=== PATIENT | female | born 1995 | race Caucasian/White ===

== ENCOUNTER 2017-12-20 10:48 | Emergency (ER) | payer OTHER ==
[~2017-12-20] VITALS: Ht 167.6 cm; Wt 65.8 kg
[~2017-12-20 10:48] MED LIST: CLARAVIS40 MG PO; CYCLOBENZAPRINE10 M1 PO; FIORICET 50-301 EACH PO; FLEXERIL10 MG PO; IBU800 MG PO; IBUPROFEN600 M1 PO; PAXIL40 M1 PO; SERTRALINE HYD100 MG PO; ZOFRAN ODT4 M1 SL; ZOFRAN ODT4 MG PO
[2017-12-20 12:01] LABS: ABSOLUTE BASOPHIL COUNT 0 /CUMM (0.0-0.2); ABSOLUTE EOSINOPHIL COUNT 0 /CUMM (0.0-0.7); ABSOLUTE GRANULOCYTE CT 5.9 /CUMM (1.4-6.5); ABSOLUTE LYMPH COUNT 0.6 /CUMM (1.2-3.4); ABSOLUTE MONOCYTE COUNT 0.7 /CUMM (0.10-0.60); BASOPHIL % 0.3 % (0.0-2.0); EOSINOPHIL % 0 % (0-5); GRANULOCYTE % 80.9 % (42.2-75.2); HEMATOCRIT 36.1 % (37-47); MEAN CORPUSCULAR HGB 31.4 PG (27.0-31.0); MEAN CORPUSCULAR HGB CONC 34.7 G/DL (33.0-37.0); MEAN CORPUSCULAR VOLUME 90.4 FL (81.0-99.0); PLATELET COUNT 185 /CUMM (130-400); RBC DISTRIBUTION WIDTH 12.8 % (11.5-14.5); RED BLOOD CELL CT 3.99 /CUMM (4.20-5.40); WHITE BLOOD CELL COUNT 7.3 /CUMM (4.8-10.8)
--- NOTE | 2017-12-20 14:06 | ED GENERAL ADULT ---
History of Present Illness General Chief Complaint: General Adult Stated Complaint: FEVER Source: patient Exam Limitations: no limitations Vital Signs & Intake/Output Vital Signs & Intake/Output Vital Signs Date Time Temp Pulse Resp B/P B/P Pulse O2 O2 Flow FiO2 Mean Ox Delivery Rate 12/20 1556 97.8 65 16 112/60 97 Room Air 12/20 1303 99.3 70 16 120/62 95 Room Air 12/20 1113 101.4 100 18 111/72 97 Room Air Allergies Coded Allergies: No Known Drug Allergies (Intermediate, NONE 05/23/17) lactose (GI UPSET 12/24/16) Reconcile Medications Ciprofloxacin HCl (Cipro) 500 MG TABLET 1 TAB PO BID UTI Ibuprofen 800 MG TABLET 1 TAB PO TID PAIN/FEVER Ibuprofen 600 MG TABLET 1 TAB PO TID PRN pain with food Paroxetine HCl (Paxil) 40 MG TABLET 1 TAB PO QPM MENTAL HEALTH (Reported) Triage Note: PT STATES SHE HAS A FEVER FOR THE PAST 24HOURS. PT STATES SHE WAS VOMITING AND FEELING DIZZY AND STATES SHE HAD A WATKINS. Triage Nurses Notes Reviewed? yes Onset: Abrupt Duration: day(s): (1-2), changing over time, continues in ED Timing: single episode today Injury Environment: home Severity: mild, moderate No Modifying Factors: none LMP (ages 10-50): unknown : No Patient currently breastfeeds: No HPI: 22-year-old female history of depression and anorexia presents for evaluation of nausea, vomiting, abdominal pain fever and dizziness. Patient states no started 1-2 days ago and it been persistent. She reports she had 3 episodes of watery diarrhea and an episode of vomiting that occurred last night. She also reports some intermittent lower abdominal pain mostly on the left side. She also reports urinary urgency and frequency. No dysuria vaginal discharge or bleeding. She has some left-sided lower back pain. No hematuria. She been taking Motrin at home with some improvement. No rashes chest pain shortness of breath or cough. She has been able tolerate some fluids and food today. She feels like her nausea and diarrhea have improved. No sick contacts recent travel or recent antibiotics. (Rell Means) Past History Travel History Traveled to [place] past 21 day No Medical History Any Pertinent Medical History? see below for history Neurological: NONE EENT: NONE Cardiovascular: NONE Respiratory: NONE Gastrointestinal: NONE Hepatic: NONE Renal: NONE Musculoskeletal: NONE Psychiatric: depression, anorexia nervosa Endocrine: NONE Blood Disorders: NONE Cancer(s): NONE Surgical History Surgical History: non-contributory Psychosocial History What is your primary language Irish Tobacco Use: Never used ETOH Use: denies use Illicit Drug Use: denies illicit drug use Family History Hx Contributory? No (Rell Means) Review of Systems Review of Systems Constitutional: Reports: fever, malaise. EENTM: Reports: no symptoms. Respiratory: Reports: no symptoms. Cardiovascular: Reports: no symptoms. GI: Reports: see HPI, abdominal pain, diarrhea, nausea, vomiting. Genitourinary: Reports: urgency. Musculoskeletal: Reports: muscle pain, muscle stiffness. Skin: Reports: no symptoms. Neurological/Psychological: Reports: no symptoms. Hematologic/Endocrine: Reports: no symptoms. Immunologic/Allergic: Reports: no symptoms. All Other Systems: Reviewed and Negative (Rell Means) Physical Exam Physical Exam General Appearance: well developed/nourished, no apparent distress, alert, awake Head: atraumatic, normal appearance Eyes: Bilateral: normal appearance, PERRL, EOMI. Ears, Nose, Throat: hearing grossly normal Neck: normal inspection, supple, full range of motion Respiratory: normal breath sounds, chest non-tender, no respiratory distress, lungs clear Cardiovascular: regular rate/rhythm, normal peripheral pulses Peripheral Pulses: 2+ radial (R), 2+ radial (L) Gastrointestinal: normal bowel sounds, soft, no organomegaly, tenderness (llq, left flank, lf periumbil) Back: normal inspection, normal range of motion, lumbar paraspinous muscles tender to palpation on the left side Extremities: normal inspection, normal range of motion, no edema Neurologic/Psych: no motor/sensory deficits, awake, alert, oriented x 3, normal gait Skin: intact, normal color, warm/dry Lymphatic: no anterior cervical ottoniel Core Measures ACS in differential dx? No CVA/TIA Diagnosis: No Sepsis Present: No Sepsis Focused Exam Completed? No (Rell Means) Progress Differential Diagnoses I considered the following diagnoses in my evaluation of the patient: [UTI, pyelonephritis, kidney stone, PID, ovarian cyst, colitis, gastroenteritis, inflammatory bowel disease, viral syndrome] Plan of Care: Orders Procedure Date/time Status Add-on Test (ER Only) 12/20 1543 Active CULTURE,URINE 12/20 1503 Active URINALYSIS 12/20 1134 Complete THROAT CULTURE W/QUICK STREP 12/20 1115 Active HUMAN BETA HCG SCREEN 12/20 1115 Complete COMPREHENSIVE METABOLIC PANEL 12/20 1115 Complete CBC WITHOUT DIFFERENTIAL 12/20 1115 Complete Laboratory Tests 12/20/17 1503: Urine Color YEL, Urine Clarity CLEAR, Urine pH 6.0, Ur Specific [place] <= 1.005 , Urine Protein NEG, Urine Ketones NEG, Urine Nitrite NEG, Urine Bilirubin NEG, Urine Urobilinogen 0.2, Ur Leukocyte Esterase SMALL H, Ur Microscopic SEDIMENT EXAMINED, Urine RBC RARE, Urine WBC 5-10 H, Ur Epithelial Cells MOD H, Urine Bacteria RARE H, Urine Hemoglobin TRACE-INTACT, Urine Glucose NEG 12/20/17 1151: Anion Gap 14, Estimated GFR > 60, BUN/Creatinine Ratio 13.3, Glucose 105 H, Calcium 8.6, Total Bilirubin 0.9, AST 31, ALT 27, Alkaline Phosphatase 55, Total Protein 7.2, Albumin 4.1, Globulin 3.1, Albumin/Globulin Ratio 1.3, Total Beta HCG NEGATIVE, CBC w Diff NO MAN DIFF REQ, RBC 3.99 L, MCV 90.4, MCH 31.4 H, MCHC 34.7, RDW 12.8, MPV 9.0, Gran % 80.9 H, Lymphocytes % 8.5 L, Monocytes % 10.3 H, Eosinophils % 0, Basophils % 0.3, Absolute Granulocytes 5.9, Absolute Lymphocytes 0.6 L, Absolute Monocytes 0.7 H, Absolute Eosinophils 0, Absolute Basophils 0 Microbiology 12/20 1503 URINE ROUT: Urine Culture - RECD Patient seen and evaluated. She is here with fever nausea vomiting diarrhea abdominal pain and urinary urgency. Symptoms have been ongoing for 1-2 days. She reports that her diarrhea and nausea and vomiting have improved she's not had any past 12 hours. She has been able tolerate some fluids today. On exam she has some left-sided abdominal tenderness without rebound or guarding. She has a temp of 101 here. IV fluids IV Tylenol ordered labs and CT scan of the abdomen and pelvis ordered. Blood work is not showing any significant acute findings. CT scan is negative. Patient is feeling much better after IV Tylenol and IV fluids. There's been no vomiting here she reports she is no longer feeling nauseous. She was able tolerate some fluids. Urinalysis is showing some signs of infection with white blood cells and leukocyte esterase. Urine culture was added on. Patient will be treated with Cipro for possible urinary tract infection. Also advised her to continue alternating Tylenol and ibuprofen every 6 hours as needed. Follow-up with primary care doctor. Discussed return precautions in detail. Patient agrees the plan. Diagnostic Imaging: Viewed by Me: CT Scan. Discussed w/RAD: CT Scan. Radiology Impression: PATIENT: EDYTA GASCA PRESENT AGE: 22 PATIENT ACCOUNT NO: [id number] : 93 LOCATION: [facility] ORDERING PHYSICIAN: Rell MERCADO SERVICE DATE: 12/20/17 EXAM TYPE: CAT - CT ABD & PELVIS W IV CONTRAST EXAMINATION: CT ABDOMEN AND PELVIS WITH CONTRAST CLINICAL INFORMATION: Appendicitis or ovarian cyst COMPARISON: None TECHNIQUE: Multidetector volumetric imaging was performed of the abdomen and pelvis following IV administration of 95 mL of Omnipaque 300 20 intravenous contrast. Sagittal and coronal reformatted images were obtained on the technologist's workstation. DLP: 306 mGy-cm FINDINGS: LUNG BASES: The visualized lung bases are unremarkable. LIVER, GALLBLADDER, AND BILIARY TREE: The liver is normal in size, shape, and attenuation. No focal hepatic lesion or biliary ductal dilatation is present. The gallbladder is unremarkable with no evidence of radiopaque gallstones, gallbladder wall thickening, or obvious pericholecystic inflammatory changes. PANCREAS: Unremarkable. SPLEEN: Unremarkable. ADRENAL GLANDS: Unremarkable. KIDNEYS AND URETERS: The kidneys are normal in size, shape, and attenuation. No hydronephrosis, hydroureter, or calculi seen. No perinephric stranding. BLADDER: Unremarkable. GASTROINTESTINAL TRACT: Appendix not clearly visualized. However there is no inflammatory changes in the right lower quadrant. Large bowel and small bowel normal. Stomach normal. ABDOMINAL WALL: No significant hernia is appreciated. LYMPH NODES: Normal. VASCULAR: Unremarkable. PELVIC VISCERA: Unremarkable. OSSEOUS STRUCTURES: Unremarkable. IMPRESSION: Normal exam. Although the appendix is not visualized there is no inflammatory changes in the expected region of the appendix in the right lower quadrant and pericecal area No ovarian cyst or mass. DICTATED BY: Jay Solis MD DATE/ TIME DICTATED:12/20/171514 SMALL ANIMAL VETERINARIAN:BETH DATE/TIME TRANSCRIBED: 12/20/171514 CONFIDENTIAL, DO NOT COPY WITHOUT APPROPRIATE AUTHORIZATION. Initial ED EKG: none (Rell Means) Departure Departure Disposition: HOME OR SELF CARE Condition: Stable Clinical Impression Primary Impression: UTI (urinary tract infection) Qualifiers: Urinary tract infection type: acute cystitis Hematuria presence: without hematuria Qualified Code: N30.00 - Acute cystitis without hematuria Referrals: Edith Schaefer MD (PCP/Family) Additional Instructions: Take antibiotics as directed for the full course. Alternate Tylenol and ibuprofen every 6-8 hours as needed for cough or fever. Drink plenty of fluids. Monitor symptoms closely return with any concerns. Follow-up with her primary care doctor to review all results of today's visit. Please go over all results of today's visit with your primary care doctor. Contact your primary care doctor to let them know you were here in the emergency room. There may be nonspecific findings which may not be related to your visit today here in the emergency room but may require further evaluation and chronic monitoring by your primary care doctor. If you had a laceration today the chance of foreign body always remains. You should follow-up with your primary care doctor for recheck in 3-5 days for a wound check. If you had an x-ray done there is a chance that a fracture could have been missed on initial read and you should follow-up with your primary care doctor for repeat x-rays if symptoms persist. If your blood pressure was elevated here in the emergency room please have rechecked by her primary care doctor within the next 48 hours by your primary care doctor. If you were prescribed a narcotic here in the emergency room or any type of controlled substances you're not allowed to drive while taking this medication or operate any type of heavy machinery. Narcotics can make you feel lightheaded dizziness nausea and can cause constipation. You may need to sweet pickle maker a stool softener. Thank you for choosing [facility] emergency room. Please return to the emergency room immediately if you have any other concerns worsening of symptoms. Departure Forms: Customer Survey General Discharge Information Prescriptions: Current Visit Scripts Ibuprofen 1 TAB PO TID #30 TAB Ciprofloxacin HCl (Cipro) 1 TAB PO BID #14 TAB (Rell Means) PA/LOCOMOTIVE OILER Co-Sign Statement Statement: ED Attending supervision documentation- [] I saw and evaluated the patient. I have also reviewed all the pertinent lab results and diagnostic results. I agree with the findings and the plan of care as documented in the PA's/LOCOMOTIVE OILER's documentation. [x] I have reviewed the ED Record and agree with the PA's/LOCOMOTIVE OILER's documentation. [] Additions or exceptions (if any) to the PAs/LOCOMOTIVE OILER's note and plan are summarized below: [] (Jack Reza DO) Critical Care Note Critical Care Note Critical Care Time: non-applicable (Rell Means)
--- NOTE | 2017-12-20 15:29 | CT SCAN REPORT ---
EXAMINATION: CT ABDOMEN AND PELVIS WITH CONTRAST CLINICAL INFORMATION: Appendicitis or ovarian cyst COMPARISON: None TECHNIQUE: Multidetector volumetric imaging was performed of the abdomen and pelvis following IV administration of 95 mL of Omnipaque 300 20 intravenous contrast. Sagittal and coronal reformatted images were obtained on the technologist's workstation. DLP: 306 mGy-cm FINDINGS: LUNG BASES: The visualized lung bases are unremarkable. LIVER, GALLBLADDER, AND BILIARY TREE: The liver is normal in size, shape, and attenuation. No focal hepatic lesion or biliary ductal dilatation is present. The gallbladder is unremarkable with no evidence of radiopaque gallstones, gallbladder wall thickening, or obvious pericholecystic inflammatory changes. PANCREAS: Unremarkable. SPLEEN: Unremarkable. ADRENAL GLANDS: Unremarkable. KIDNEYS AND URETERS: The kidneys are normal in size, shape, and attenuation. No hydronephrosis, hydroureter, or calculi seen. No perinephric stranding. BLADDER: Unremarkable. GASTROINTESTINAL TRACT: Appendix not clearly visualized. However there is no inflammatory changes in the right lower quadrant. Large bowel and small bowel normal. Stomach normal. ABDOMINAL WALL: No significant hernia is appreciated. LYMPH NODES: Normal. VASCULAR: Unremarkable. PELVIC VISCERA: Unremarkable. OSSEOUS STRUCTURES: Unremarkable. IMPRESSION: Normal exam. Although the appendix is not visualized there is no inflammatory changes in the expected region of the appendix in the right lower quadrant and pericecal area No ovarian cyst or mass.
[2017-12-20 15:56] VITALS: BP 112/60
[2017-12-20] MEDS ORDERED: CIPRO500 M1 PO (16:08)
[2017-12-20] MEDS ORDERED: IBUPROFEN800 M1 PO (16:08)
== END 2017-12-20 16:30 ==
LOC: ERH 10:48
PROVIDERS: Physician Assistant
DX: N39.0 Urinary tract infection, site not specified (principal); R11.2 Nausea with vomiting, unspecified; R10.9 Unspecified abdominal pain; R42 Dizziness and giddiness
CPT/HCPCS: 74177; 81001; 87086; 96374; 96375; J0131; J2405